=== PATIENT | male | born 1975 | race Caucasian/White ===

== ENCOUNTER 2016-11-09 13:45 | Emergency (ER) | payer BC ==
[2016-11-09 13:59] VITALS: BP 130/78
--- NOTE | 2016-11-09 14:41 | UC ---
Upper Extremity HPI - HPI Summary HPI Summary: 41 YEAR OLD MALE PRESENTS WITH COMPLAINS OF RIGHT HAND PAIN SECONDARY TO A FALL. - History of Current Complaint Chief Complaint: UCUpperExtremity Stated Complaint: HAND INJURY Time Seen by Provider: 11/09/16 14:40 Hx Obtained From: Patient Onset/Duration: Sudden Onset Severity Initially: Moderate Severity Currently: Moderate Pain Scale Used: 0-10 Numeric - 5 Character: Sharp Aggravating Factor(s): Movement Alleviating Factor(s): Nothing Associated Signs And Symptoms: Positive: Swelling - Allergies/Home Medications Allergies/Adverse Reactions: Allergies Allergy/AdvReac Type Severity Reaction Status Date / Time No Known Allergies Allergy Verified 12/01/14 15:18 Home Medications: Home Medications Aspirin 81 mg PO 11/09/16 [History] Metoprolol Tartrate TAB* [Lopressor TAB*] 25 mg PO DAILY 11/09/16 [History Confirmed 11/09/16] Multiple Vitamins W/ Minerals [Multivitamin Men] 1 tab PO 11/09/16 [History] PMH/Surg Hx/FS Hx/Imm Hx Previously Healthy: Yes - Surgical History Surgical History: Yes Surgery Procedure, Year, and Place: APPENDECTOMY - Family History Known Family History: Positive: None - Social History Alcohol Use: Occasionally Substance Use Type: None Smoking Status (MU): Never Smoked Tobacco Review of Systems Constitutional: Negative Skin: Negative Eyes: Negative ENT: Negative Respiratory: Negative Cardiovascular: Negative Gastrointestinal: Negative Genitourinary: Negative Motor: Negative Neurovascular: Negative Musculoskeletal: Other: - RIGHT HAND PAIN/SWELLING Neurological: Negative Psychological: Negative All Other Systems Reviewed And Are Negative: Yes Physical Exam Triage Information Reviewed: Yes Appearance: Well-Appearing Vital Signs: Initial Vital Signs Temp 36.6 C 11/09/16 13:55 Pulse 68 11/09/16 13:55 Resp 18 11/09/16 13:55 BP 130/78 11/09/16 13:55 Pulse Ox 98 11/09/16 13:55 Eye Exam: Normal ENT Exam: Normal Dental Exam: Normal Neck exam: Normal Neck: Positive: 1 Respiratory Exam: Normal Cardiovascular Exam: Normal Abdominal Exam: Normal Musculoskeletal: Positive: Other: - RIGHT HAND SWELLING/PAIN Neurological Exam: Normal Psychological Exam: Normal Skin Exam: Normal Upper Extremity Course/Dx - Differential Dx/Diagnosis Provider Diagnoses: RIGHT HAND SWELLING/PAIN Discharge - Discharge Plan Condition: Stable Disposition: HOME Prescriptions: Ibuprofen TAB* [Motrin TAB* 800 MG] 800 mg PO Q8H PRN #30 tab PRN Reason: Pain Patient Education Materials: Hand Sprain (ED) Referrals: Zachary Cartwright MD [Medical Doctor] - Thuan Mcgarry MD [Primary Care Provider] -
--- NOTE | 2016-11-09 15:24 | RAD ---
INDICATION: RIGHT hand pain and swelling at the palm post fall yesterday. COMPARISON: February 09, 2009 radiographs of the RIGHT fourth finger. TECHNIQUE: AP, lateral, and oblique views RIGHT hand. REPORT: Negative for fracture or malalignment. Preserved joint spaces. Unremarkable soft tissue contours. IMPRESSION: Negative exam.
== END 2016-11-09 15:31 | disposition home or self-care (01) ==
LOC: UCEAST 13:45
DX: M79.641 Pain in right hand (principal); M79.89 Other specified soft tissue disorders
CPT/HCPCS: 99212; G0463

== ENCOUNTER → 2018-05-06 15:32 | Emergency (ER) | payer BC ==
[~2018-05-06 15:32] MED LIST: NS 0.9% 1000 ML** 1,000 ML IV ONE
--- NOTE | 2018-05-06 16:00 | ED ---
Respiratory - HPI Summary HPI Summary: A 42 y/o M presents to ED with c/o labored breathing onset yesterday and worsening today. It has improved since arriving at ED. Associated sx: acute on chronic fatigue; bilateral feet pain. Denies: fever, chills, nausea, vomiting, CP, abd pain. He is scheduled to see his PCP next week. PMHx: sleep apnea, a- fib, HTN, sports-induced asthma. No hx of COPD. He takes a daily baby aspirin, but ran out approx a week ago. He takes a beta-clyde for HTN. Non-smoker. - History of Current Complaint Chief Complaint: EDGeneral Stated Complaint: EXTREME FATIGUE, LABORED BREATHING PER PT Time Seen by Provider: 05/06/18 15:53 Hx Obtained From: Patient Onset/Duration: Lasting Days, Resolved Timing: Constant Initial Severity: Moderate Current Severity: Mild Pain Intensity: 0 - out of 10 Character: Dyspnea at Rest - Allergy/Home Medications Allergies/Adverse Reactions: Allergies Allergy/AdvReac Type Severity Reaction Status Date / Time No Known Allergies Allergy Verified 12/01/14 15:18 PMH/Surg Hx/FS Hx/Imm Hx Previously Healthy: No Endocrine/Hematology History: Denies: Hx Diabetes Cardiovascular History: Reports: Hx Hypertension - NOT ANY MEDICATION ANYMORE Denies: Hx Pacemaker/ICD Respiratory History: Reports: Hx Asthma - EXERCISE INDUCED History: Denies: Hx Renal Disease Sensory History: Denies: Hx Hearing Aid Psychiatric History: Denies: Hx Panic Disorder - Surgical History Surgery Procedure, Year, and Place: APPENDECTOMY Infectious Disease History: No Infectious Disease History: Denies: Traveled Outside the [place] in Last 30 Days - Family History Known Family History: Positive: Hypertension - maternal side, Other - multiple PE - father - Social History Occupation: Employed Full-time Lives: With Family Alcohol Use: Occasionally Hx Substance Use: No Substance Use Type: Reports: None Hx Tobacco Use: No Smoking Status (MU): Never Smoked Tobacco Review of Systems Positive: Fatigue. Negative: Fever, Chills Negative: Chest Pain Respiratory: Other - pos: labored breathing Negative: Abdominal Pain, Vomiting, Nausea Musculoskeletal: Other - pos: bilat feet pain All Other Systems Reviewed And Are Negative: Yes Physical Exam - Summary Physical Exam Summary: GENERAL: Patient is a well-developed and nourished MALE who is lying comfortable in the stretcher. Patient is not in any acute respiratory distress. HEAD AND FACE: Normocephalic EYES: PERRLA, EOMI x 2. EARS: Hearing grossly intact. MOUTH: Oropharynx within normal limits. NECK: Supple, trachea is midline, no adenopathy, no JVD, no carotid bruit. CHEST: Symmetric, no tenderness at palpation LUNGS: Clear to auscultation bilaterally. No wheezing or crackles. CVS: Regular rate and rhythm, S1 and S2 present, no murmurs or gallops appreciated. ABDOMEN: Soft, non-tender. Bowel sounds are normal. No abdominal abnormal pulsations. EXTREMITIES: Full ROM in all major joints, no edema, no cyanosis or clubbing. NEURO: Alert and oriented x 3. No acute neurological deficits. Speech is normal and follows commands. SKIN: Dry and warm Triage Information Reviewed: Yes Vital Signs On Initial Exam: Initial Vitals Temp Pulse Resp BP Pulse Ox 97.5 F 59 17 175/103 99 05/06/18 15:46 05/06/18 15:46 05/06/18 15:46 05/06/18 15:46 05/06/18 15:46 Vital Signs Reviewed: Yes Diagnostics - Vital Signs Vital Signs Temp Pulse Resp BP Pulse Ox 05/06/18 15:46 97.5 F 59 17 175/103 99 - Laboratory Result Diagrams: 05/06/18 16:06 05/06/18 16:06 Lab Statement: Any lab studies that have been ordered have been reviewed, and results considered in the medical decision making process. - EKG 1555 Cardiac Rate: Bradycardia - 54 bpm EKG Rhythm: Sinus Bradycardia Summary of EKG Findings: nml axis. Disposition - Course Course Of Treatment: Pt is a 42 y/o M presenting with labored breathing onset yesterday and worsening today and fatigue for past week. He denies: fever, chills, nausea, vomiting, CP, abd pain. PMHx: sleep apnea, a-fib, HTN, sports- induced asthma. No hx of COPD. He takes a daily baby aspirin and beta-clyde. Non-smoker. Lab work is unremarkable. Patient will be signed out to Dr. Steen at shift change pending . - Diagnoses Provider Diagnoses: Shortness of breath Discharge - Sign-Out/Discharge Documenting (check all that apply): Sign-Out Patient Signing out patient TO: Ayad Steen - Discharge Plan Referrals: Thuan Mcgarry MD [Primary Care Provider] - - Attestation Statements Document Initiated by Josh: Yes Documenting Scribe: Millie Avila Provider For Whom Josh is Documenting (Include Credential): Dr. Chuck Becerril MD Scribe Attestation: I, Millie Avila, scribed for Dr. Chuck Becerril MD on 05/06/18 at 1846. Scribe Documentation Reviewed: Yes Provider Attestation: The documentation as recorded by the Millie fritz accurately reflects the service I personally performed and the decisions made by me, Dr. Chuck Becerril MD Status of Scribe Document: Viewed
[2018-05-06 16:16] LABS: ABS Basophils 0.1 10^3/ul (0-0.2); ABS Eosinophils 0.3 10^3/ul (0-0.6); ABS Lymphocytes 2.1 10^3/ul (1.0-4.8); ABS Monocytes 0.5 10^3/ul (0-0.8); ABS Neutrophils 3.1 10^3/ul (1.5-7.7); ABS Nucleated RBC 0 10^3/ul; Eosinophil % 4.5 %; Hematocrit 44 % (42-52); Hemoglobin 15.7 g/dl (14.0-18.0); Lymphocyte % 34.6 %; Mean Corpuscular HGB Conc 35 g/dl (31-36); Mean Corpuscular Hemoglobin 33 pg (27-31); Mean Corpuscular Volume 94 fL (80-94); Mean Platelet Volume 8.3 fL (7.4-10.4); Nucleated Red Blood Cells % 0.1; Platelet Count 169 10^3/ul (150-450); Red Blood Count 4.74 10^6/ul (4.00-5.40); Red Cell Distribution Width 14 % (10.5-15); White Blood Count 6.1 10^3/ul (3.5-10.8)
[2018-05-06 16:23] LABS: Activated Partial Thrombo Time 32.4 seconds (26.0-36.3)
[2018-05-06 16:35] LABS: Albumin 4.5 g/dL (3.2-5.2); Albumin/Globulin Ratio 2.1 (1-3); BUN/Creatinine Ratio 14.9 (8-20); Calcium 9.1 mg/dL (8.6-10.3); EGFR Non-African American 88.4 (>60); Globulin 2.1 g/dL (2-4); Potassium 4.2 mmol/L (3.5-5.0); Total Bilirubin 0.4 mg/dL (0.2-1.0); Total Protein 6.6 g/dL (6.4-8.9)
[2018-05-06 17:00] LABS: T4, Total 8.18 mcg/dL (6.09-12.23)
[2018-05-06 18:06] LABS: TSH (Thyroid Stimulating Horm) 2.63 mcIU/mL (0.34-5.60)
--- NOTE | 2018-05-06 20:47 | ED ---
Progress - Progress Note Progress Note: The patient is a sign-out from Dr. Chuck Becerril MD, to Dr. Ayad Steen MD, at change of shift at 1900 pending repeat troponin and disposition. Repeat troponin is negative. He is diagnosed with SOB and weakness. We discussed discharge home and follow up with PCP. He agrees with this plan and understands the need for return to the ED for any new or worsening symptoms. Re-Evaluation - Re-Evaluation First Eval Re-Evaluation Time: 20:40 Change: Improved Comment: We discussed lab results and discharge home. He is feeling better. Course/Dx - Course Course Of Treatment: Pt is a 42 y/o M presenting with labored breathing onset yesterday and worsening today and fatigue for past week. He denies: fever, chills, nausea, vomiting, CP, abd pain. PMHx: sleep apnea, a-fib, HTN, sports- induced asthma. No hx of COPD. He takes a daily baby aspirin and beta-clyde. Non-smoker. Lab work is unremarkable. Patient will be signed out to Dr. Steen at shift change pending 2nd trop. Second troponin came back normal, patient feels well and I do not have any significant suspicion of something significant here - Diagnoses Provider Diagnoses: Shortness of breath, Weakness Discharge - Sign-Out/Discharge Documenting (check all that apply): Patient Departure - Patient will be discharged home., Receiving Sign-Out Receiving patient FROM: Chuck Becerril - Patient is a sign-out from Dr. Gabriela Becerril MD, to Dr. Ayad Steen MD, at change of shift at 1900 pending repeat troponin and disposition. Patient Received Moderate/Deep Sedation with Procedure: No - Discharge Plan Condition: Good Disposition: HOME Patient Education Materials: Weakness (ED) Referrals: Thuan Mcgarry MD [Primary Care Provider] - As Soon As Possible Additional Instructions: Follow up with your primary care provider as soon as possible. Return to the emergency department for any new or worsening symptoms. - Billing Disposition and Condition Condition: GOOD Disposition: Home - Attestation Statements Document Initiated by Scribe: Yes Documenting Scribe: Rina Cramer Provider For Whom Scribe is Documenting (Include Credential): Dr. Ayad Steen MD Scribe Attestation: I, Rina Cramer, scribed for Dr. Ayad Steen MD on 05/07/18 at 0441. Scribe Documentation Reviewed: Yes Provider Attestation: The documentation as recorded by the scribe, Rina Cramer accurately reflects the service I personally performed and the decisions made by me, Dr. Ayad Steen MD Status of Josh Document: Viewed
[2018-05-06 21:08] VITALS: BP 140/96
== END | disposition home or self-care (01) ==
LOC: ED 15:32
DX: R06.02 Shortness of breath (principal); R53.1 Weakness; G47.30 Sleep apnea, unspecified; I48.91 Unspecified atrial fibrillation; I10 Essential (primary) hypertension; Z79.82 Long term (current) use of aspirin
CPT/HCPCS: 36415; 71046; 80053; 83605; 83880; 84436; 84443; 84484; 85025; 85379; 85730; 93005; 99282

== ENCOUNTER 2018-10-11 16:32 | Emergency (ER) | payer BC ==
--- NOTE | 2018-10-11 17:31 | ED ---
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 He states that he was walking and starting feeling like he was in A-fib and felt that his left leg was rubbery. 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 Per the triage, the pt states he hasn't taken his medications the last couple of days as he is out of his routine. Took his Metoprolol dose when he started experiencing the symptoms. He rates his current pain severity a 0/10. No aggravating or alleviating factors noted. He also reports palpitations and left arm twinging. He has Hx of A-fib. - History of Current Complaint Chief Complaint: EDDysrhythmPalp Stated Complaint: A FIB PER PT Time Seen by Provider: 10/11/18 17:08 Hx Obtained From: Patient Onset/Duration: Started Hours Ago, Still Present Time of Onset: 15:30 Timing: Intermittent, Lasting Hours Initial Severity: Mild Current Severity: None Pain Intensity: 0 Pain Scale Used: 0-10 Numeric Aggravating Factor(s): Nothing Alleviating Factor(s): Nothing Associated Signs and Symptoms: Positive: Shortness of Breath, Palpitations, Cough - when feeling like he is having an arrhythmia., Other: - pos - left arm "twinging", left leg feels "rubbery", chest heaviness - Allergy/Home Medications Allergies/Adverse Reactions: Allergies Allergy/AdvReac Type Severity Reaction Status Date / Time No Known Allergies Allergy Verified 12/01/14 15:18 Home Medications: Home Medications Metoprolol Succinate 25 mg PO DAILY 10/11/18 [History Confirmed 10/11/18] PMH/Surg Hx/FS Hx/Imm Hx Endocrine/Hematology History: Denies: Hx Diabetes Cardiovascular History: Reports: Hx Hypertension - NOT ANY MEDICATION ANYMORE Denies: Hx Pacemaker/ICD Respiratory History: Reports: Hx Asthma - EXERCISE INDUCED History: Denies: Hx Renal Disease Sensory History: Denies: Hx Hearing Aid Psychiatric History: Denies: Hx Panic Disorder - Surgical History Surgery Procedure, Year, and Place: APPENDECTOMY Infectious Disease History: No Infectious Disease History: Denies: Traveled Outside the [place] in Last 30 Days - Family History Known Family History: Positive: Hypertension - maternal side, Other - multiple PE - father - Social History Alcohol Use: Occasionally Hx Substance Use: No Substance Use Type: Reports: None Hx Tobacco Use: No Smoking Status (MU): Never Smoked Tobacco Review of Systems Positive: Palpitations, Other - pos - chest heaviness Positive: Shortness Of Breath, Cough - when feeling like having an arrhythmia Positive: Other - pos - left arm "twinging" and left left feels "rubbery" All Other Systems Reviewed And Are Negative: Yes Physical Exam - Summary Physical Exam Summary: Appearance: The patient is well-nourished in no acute distress and in no acute pain. Skin: The skin is warm and dry and skin color reflects adequate perfusion. HEENT: The head is normocephalic and atraumatic. The pupils are equal and reactive. The conjunctivae are clear and without drainage. Nares are patent and without drainage. Mouth reveals moist mucous membranes and the throat is without erythema and exudate. The external ears are intact. The ear canals are patent and without drainage. The tympanic membranes are intact. Neck: The neck is supple with full range of motion and non-tender. There are no carotid bruits. There is no neck vein distension. Respiratory: Chest is non-tender. Lungs are clear to auscultation and breath sounds are symmetrical and equal. Cardiovascular: Heart is regular rate and rhythm. There is no murmur or rub auscultated. There is no peripheral edema and pulses are symmetrical and equal. Abdomen: The abdomen is soft and non-tender. There are normal bowel sounds heard in all four quadrants and there is no organomegaly palpated. Musculoskeletal: There is no back tenderness noted. Extremities are non-tender with full range of motion. There is good capillary refill. There is no peripheral edema or calf tenderness elicited. Neurological: Patient is alert and oriented to person, place and time. The patient has symmetrical motor strength in all four extremities. Cranial nerves are grossly intact. Deep tendon reflexes are symmetrical and equal in all four extremities. Psychiatric: The patient has an appropriate affect and does not exhibit any anxiety or depression. Triage Information Reviewed: Yes Vital Signs On Initial Exam: Initial Vitals Temp Pulse Resp BP Pulse Ox 97.7 F 73 18 145/102 97 10/11/18 16:38 10/11/18 16:38 10/11/18 16:38 10/11/18 16:38 10/11/18 16:38 Vital Signs Reviewed: Yes Diagnostics - Vital Signs Vital Signs Temp Pulse Resp BP Pulse Ox 10/11/18 16:51 66 96 10/11/18 16:50 68 146/93 93 10/11/18 16:38 97.7 F 73 18 145/102 97 - Laboratory Result Diagrams: 10/11/18 18:30 10/11/18 18:30 Lab Statement: Any lab studies that have been ordered have been reviewed, and results considered in the medical decision making process. - EKG 1724 Cardiac Rate: NL - 62 bpm EKG Rhythm: Sinus Rhythm Summary of EKG Findings: Sinus Rhythm @ 62 bpm. Intermittent left bundle branch block. Disposition - Course Course Of Treatment: Mr. Camarena was placed on a monitor on arrival and noted to have an intermittent left bundle branch block. This gradually resolved while he was here and he became asymptomatic. EKG was within normal limits the first time and the second time showed a left bundle branch block. He had 2 troponins that were 0. I spoke with Dr. Rowe who recommended that he follow up with the milk receiver. It's likely that his taking his beta clyde resolved the situation. - Diagnoses Provider Diagnoses: LBBB (left bundle branch block) Discharge - Sign-Out/Discharge Documenting (check all that apply): Patient Departure - discharge Patient Received Moderate/Deep Sedation with Procedure: No - Discharge Plan Condition: Stable Disposition: HOME Patient Education Materials: Heart Block (ED) Referrals: Thuan Mcgarry MD [Primary Care Provider] - 3 Days Additional Instructions: Please follow up with your primary care doctor in the next 2-3 days and return to the emergency department for worsening or concerning symptoms. Please consider getting established with a milk receiver after you move to [place]. - Billing Disposition and Condition Condition: STABLE Disposition: Home - Attestation Statements Document Initiated by Scribe: Yes Documenting Scribe: Chas Rebollar Provider For Whom Josh is Documenting (Include Credential): Robin Lion MD Scribe Attestation: Chas Benavides, scribed for Robin Lion MD on 10/11/18 at 2122. Scribe Documentation Reviewed: Yes Provider Attestation: The documentation as recorded by the Chas fritz accurately reflects the service I personally performed and the decisions made by me, Robin Lion MD Status of Scribe Document: Viewed
[2018-10-11 18:45] LABS: ABS Basophils 0.1 10^3/ul (0-0.2); ABS Eosinophils 0.1 10^3/ul (0-0.6); ABS Monocytes 0.5 10^3/ul (0-0.8); ABS Neutrophils 3.6 10^3/ul (1.5-7.7); Eosinophil % 2.3 %; Hematocrit 44 % (42-52); Hemoglobin 15.7 g/dL (14.0-18.0); Lymphocyte % 31.3 %; Mean Corpuscular HGB Conc 36 g/dL (31-36); Mean Corpuscular Hemoglobin 34 pg (27-31); Mean Corpuscular Volume 94 fL (80-94); Mean Platelet Volume 8.2 fL (7.4-10.4); Nucleated Red Blood Cells % 0.1; Platelet Count 161 10^3/uL (150-450); Red Blood Count 4.67 10^6 /uL (4.18-5.48); Red Cell Distribution Width 14 % (10-15); White Blood Count 6.3 10^3/uL (3.5-10.8)
[2018-10-11 18:49] LABS: INR 0.99 (0.82-1.09)
[2018-10-11 18:58] LABS: Albumin 4.4 g/dL (3.2-5.2); Albumin/Globulin Ratio 1.8 (1-3); BUN/Creatinine Ratio 15.7 (8-20); Calcium 9.5 mg/dL (8.6-10.3); EGFR African American 96.9 (>60); EGFR Non-African American 80.1 (>60); Globulin 2.4 g/dL (2-4); Potassium 4.1 mmol/L (3.5-5.0); Total Bilirubin 0.6 mg/dL (0.2-1.0); Total Protein 6.8 g/dL (6.4-8.9)
[2018-10-11 19:13] LABS: TSH (Thyroid Stimulating Horm) 2.3 mcIU/mL (0.34-5.60)
[2018-10-11 21:18] VITALS: BP 134/78
== END 2018-10-11 21:25 | disposition home or self-care (01) ==
LOC: ED 16:32
DX: I44.7 Left bundle-branch block, unspecified (principal); I10 Essential (primary) hypertension; J45.909 Unspecified asthma, uncomplicated
CPT/HCPCS: 36415; 80053; 83605; 83735; 84443; 84484; 85025; 85610; 93005; 99283